=== PATIENT | female | born 1990 | race Caucasian/White ===

== ENCOUNTER 2016-02-24 19:57 | Emergency (ER) | payer OTHER ==
[2016-02-24 20:42] VITALS: BP 133/77
[2016-02-24] MEDS ORDERED: Metoclopramide IV* 5 MG/ML 2 ML VIAL IV SLOW PU ONE (20:59)
[2016-02-24] MEDS ORDERED: Ketorolac INJ* 30 MG/ML 1 ML VIAL IV PUSH ONE (21:00)
[2016-02-24] MEDS ORDERED: NS 0.9% 1000 ML* 1,000 ML IV ONE (21:04)
--- NOTE | 2016-02-24 21:05 | UC ---
Headache HPI - HPI Summary HPI Summary: PATIENT HAS HAD A MIGRAINE FOR OVER 24 HOURS, THINKS SHE HAS HAD AN INCRESE INRATE OF MIGRAINES SINCE STARTING HER NEW CONTROL PILL. N/V, DIZZYNESS, PAIN OVER THE RIGHT EYE, PHOTOPHOBIA. - History Of Current Complaint Chief Complaint: UCHeadache Stated Complaint: HEADACHE,NAUSEA Time Seen by Provider: 02/24/16 20:47 Hx Obtained From: Patient Hx Last Menstrual Period: 02/23/16 ?: No Onset/Duration: Sudden Onset, Lasting Days Onset Of Symptoms: Gradual Initially Headache Was: Moderate Currently Pain Is: Moderate Timing: Constant Character: Dull, Migraine Location of Headache: Frontal Aggravating Factor: Exertion, Position Change, Bright Lights Allevating Factors: Nothing Associated Signs And Symptoms: Positive: Dizziness, Nausea, Vomiting - Risk Factors SAH Risk Factors: Negative Meningitis Risk Factors: Negative SDH Risk Factors: Negative Temporal Arteritis Risk Factors: Negative - Allergies/Home Medications Allergies/Adverse Reactions: Allergies Allergy/AdvReac Type Severity Reaction Status Date / Time Amoxicillin Allergy Unknown Verified 02/24/16 20:36 Reaction Details Penicillins Allergy Unknown Verified 02/24/16 20:36 Reaction Details Home Medications: Home Medications Drospirenone-Ethinyl Estradiol [Beyaz 3-0.02-0.451 mg] 1 tab PO 1900 02/24/16 [ History Confirmed 02/24/16] Ibuprofen [Advil Migraine] 200 mg PO Q12HR PRN 02/24/16 [History Confirmed 02/23] SUMAtriptan TAB* [Imitrex TAB*] 50 mg PO SEE INSTRUCTIONS PRN 02/24/16 [History Confirmed 02/24/16] PMH/Surg Hx/FS Hx/Imm Hx Previously Healthy: Yes Endocrine History Of: Denies: Diabetes Cardiovascular History Of: Denies: Cardiac Disorders, Hypertension Respiratory History Of: Denies: Asthma - Surgical History Surgical History: None - Family History Known Family History: Positive: Other - several members with migraines - Social History Alcohol Use: Rare Substance Use Type: None Smoking Status (MU): Never Smoked Tobacco Type: Cigarettes Amount Used/How Often: social - Immunization History Most Recent Influenza Vaccination: Not the 2016/2016 Season Review of Systems Constitutional: Negative Skin: Negative Eyes: Photophobia ENT: Negative Respiratory: Negative Cardiovascular: Negative Gastrointestinal: Vomiting Genitourinary: Negative Motor: Negative Neurovascular: Negative Musculoskeletal: Negative Neurological: Headache Psychological: Negative All Other Systems Reviewed And Are Negative: Yes Physical Exam Triage Information Reviewed: Yes Appearance: Well-Nourished, Ill-Appearing, Pain Distress Vital Signs: Initial Vital Signs Temp 98.1 F 02/24/16 20:29 Pulse 94 02/24/16 20:29 Resp 16 02/24/16 20:29 BP 133/77 02/24/16 20:29 Pulse Ox 99 02/24/16 20:29 Vital Signs Reviewed: Yes Eye Exam: Normal Eyes: Positive: Conjunctiva Clear ENT Exam: Normal ENT: Positive: Normal ENT inspection, Pharynx normal, TMs normal Dental Exam: Normal Neck exam: Normal Neck: Positive: Supple, Nontender, No Lymphadenopathy Respiratory Exam: Normal Respiratory: Positive: Chest non-tender, Lungs clear, Normal breath sounds Cardiovascular Exam: Normal Cardiovascular: Positive: RRR, No Murmur, Pulses Normal Abdominal Exam: Normal Abdomen Description: Positive: Nontender, No Organomegaly, Soft Bowel Sounds: Positive: Present Musculoskeletal Exam: Normal Musculoskeletal: Positive: Strength Intact, ROM Intact, No Edema Neurological Exam: Normal Neurological: Positive: Alert, Muscle Tone Normal Psychological Exam: Normal Psychological: Positive: Normal Response To Family, Age Appropriate Behavior Skin Exam: Normal Headache Course/Dx - Course Course Of Treatment: hx obtained, exam performed, meds reviewed, iv fluids, reglan and toradol given for headache, benadryl given for flushing reaction to reglan, patient responding well to medications, headache is going away. 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 - Differential Dx/Diagnosis Differential Diagnosis/HQI/PQRI: Subdural Hematoma, Migraine, Sinus Headache, Temporal Arteritis, Tension Headache Provider Diagnoses: migraine. nausea Discharge - Discharge Plan Condition: Stable Disposition: HOME Patient Education Materials: Migraine Headache (ED) Referrals: Ellyn Royal MD [Primary Care Provider] - Additional Instructions: you were treated for migraine headaches today with Normal saline, Reglan and toradol as well as benadryl. I recommend follow up with your medical provider to re evaluate your choice of control.
[2016-02-24] MEDS ORDERED: diPHENhydraMINE IV* 50 MG/ML 1 ml VIAL (BENADRYL) ONE (21:27)
[2016-02-24] MEDS ORDERED: diPHENhydraMINE IV* 50 MG/ML 1 ml VIAL (BENADRYL) IV ONE (21:27)
== END 2016-02-24 22:08 | disposition home or self-care (01) ==
LOC: UCCORT 19:57
DX: G43.909 Migraine, unspecified, not intractable, without status migrainosus (principal); Z72.0 Tobacco use; Z88.1 Allergy status to other antibiotic agents
CPT/HCPCS: 96361; 96374; 96375; 99211; G0463; J1200; J1885; J2765

== ENCOUNTER 2016-03-07 16:28 | Emergency (ER) | payer OTHER ==
[2016-03-07 16:40] VITALS: BP 94/74
--- NOTE | 2016-03-07 16:59 | UC ---
Hand/Wrist HPI - HPI Summary HPI Summary: RIGHT HAND / WRIST PAIN S/P FALL ON ICE ABOUT ONE HR AGO INJURY TO RIGHT WRIST AND RIGHT HAND + TINGLING OF THE RIGHT HAND , DIFFICULTY MOVING THE RIGHT HAND - History Of Current Complaint Chief Complaint: UCUpperExtremity Stated Complaint: RIGHT WRIST,HIP INJURY/FALL Time Seen by Provider: 03/07/16 16:32 Hx Obtained From: Patient Hx Last Menstrual Period: 02/23/16 Onset/Duration: Sudden Onset, Lasting Hours - 1, Still Present Severity Initially: Moderate Severity Currently: Moderate Character Of Pain: Aching Aggravating Factor(s): Movement, Lifting, Flexion, Extension, Internal/External Rotation Alleviating: Nothing Associated Signs And Symptoms: Positive: Weakness, Numbness/Tingling. Negative : Swelling, Redness, Bruising, Fever - Allergies/Home Medications Allergies/Adverse Reactions: Allergies Allergy/AdvReac Type Severity Reaction Status Date / Time Amoxicillin Allergy Unknown Verified 03/07/16 16:33 Reaction Details Penicillins Allergy Unknown Verified 03/07/16 16:33 Reaction Details Home Medications: Home Medications Norgestimate-Eth Estradiol(NF) [Ortho Tri-Cyclen (NF)] 1 tab PO DAILY 03/07/16 [ History Confirmed 03/07/16] PMH/Surg Hx/FS Hx/Imm Hx Previously Healthy: Yes Endocrine History Of: Denies: Diabetes Cardiovascular History Of: Denies: Cardiac Disorders, Hypertension Respiratory History Of: Denies: Asthma - Surgical History Surgical History: None - Family History Known Family History: Positive: Other - several members with migraines - Social History Alcohol Use: Rare Substance Use Type: None Smoking Status (MU): Never Smoked Tobacco Type: Cigarettes Amount Used/How Often: social - Immunization History Most Recent Influenza Vaccination: Not the Season Review of Systems Constitutional: Negative Skin: Negative Eyes: Negative ENT: Negative Respiratory: Negative Cardiovascular: Negative Musculoskeletal: Other: - RIGHT HAND PAIN All Other Systems Reviewed And Are Negative: Yes Physical Exam Triage Information Reviewed: Yes Appearance: Well-Appearing, No Pain Distress, Well-Nourished Vital Signs: Initial Vital Signs Temp 99.8 F 03/07/16 16:35 Pulse 66 03/07/16 16:35 Resp 16 03/07/16 16:35 BP 94/74 03/07/16 16:35 Pulse Ox 100 03/07/16 16:35 Vital Signs Reviewed: Yes Eye Exam: Normal Eyes: Positive: Conjunctiva Clear ENT: Positive: Normal ENT inspection, Hearing grossly normal, Pharynx normal Neck exam: Normal Neck: Positive: Supple Respiratory: Positive: Chest non-tender, Lungs clear, Normal breath sounds Cardiovascular: Positive: RRR, No Murmur, Pulses Normal Musculoskeletal: Positive: Other: - RIGHT WIRST: NO SWELLING , NO ECCHYMOSIS, + MINIMAL ABRASION , GOOD ROM ON FLEXION AND EXTENSION RIGHT HAND : NO SWELLING, NO ECCHYMOSIS , + TENDERNESS ON4TH AND 5TH METACARPAL BONE. LIMITED ROM ON FLEXION AND EXTENSION Hand/Wrist Course/Dx - Differential Dx/Diagnosis Provider Diagnoses: CONTUSION RIGHT HAND. CONTUSION RIGHT WRIST Discharge - Discharge Plan Condition: Stable Disposition: HOME Patient Education Materials: Contusion in Adults (ED) Referrals: Ellyn Royal MD [Primary Care Provider] - 5 Days Additional Instructions: REST, ICE , IBUPROFEN
--- NOTE | 2016-03-07 17:04 | RAD ---
INDICATION: Right hand injury COMPARISON: None TECHNIQUE: AP, lateral, and oblique views were obtained. FINDINGS: There is a nondisplaced transverse fractures of the base of the fifth metacarpal. This may extend intra-articularly. There are no other fractures. The joint spaces are otherwise preserved. IMPRESSION: NONDISPLACED TRANSVERSE FRACTURE BASE OF FIFTH METACARPAL
== END 2016-03-07 17:26 | disposition home or self-care (01) ==
LOC: UCCORT 16:28
DX: S62.346A Nondisplaced fracture of base of fifth metacarpal bone, right hand, initial encounter for closed fracture (principal); Z88.0 Allergy status to penicillin; Z88.1 Allergy status to other antibiotic agents; W00.0XXA Fall on same level due to ice and snow, initial encounter; Y92.9 Unspecified place or not applicable
CPT/HCPCS: 99212; G0463

== ENCOUNTER 2016-10-12 13:01 | Emergency (ER) | payer OTHER ==
[2016-10-12] MEDS ORDERED: SUMAtriptan TAB* 50 MG PO ONE (13:57)
[2016-10-12] MEDS ORDERED: Ketorolac INJ* 30 MG/ML 1 ML VIAL IM ONE (13:57)
[2016-10-12] MEDS ORDERED: Ondansetron ODT TAB* 4 MG PO ONE (13:57)
[2016-10-12] MEDS ORDERED: SUMAtriptan SQ* 6 MG/0.5 ML VIAL SUBCUT ONE (14:02)
--- NOTE | 2016-10-12 14:10 | UC ---
Headache HPI - HPI Summary HPI Summary: This is a 26 yo female with a h/o migraine HAs who presents with complaints of a severe GUILLORY. Her pain is frontal. She is light sensitive and was vomiting this am. She took Excedrin this am without improvement. The quality of her GUILLORY is similar to her prior migraines. She has been seen by neurology but resistant to starting a daily prophylactic medication. She has a GUILLORY several times monthly. Denies weakness, numbness, tingling. - History Of Current Complaint Chief Complaint: UCHeadache Stated Complaint: MIGRAINE/NAUSEA Hx Last Menstrual Period: present - ending - Allergies/Home Medications Allergies/Adverse Reactions: Allergies Allergy/AdvReac Type Severity Reaction Status Date / Time Amoxicillin Allergy Unknown Verified 10/12/16 13:18 Reaction Details Penicillins Allergy Unknown Verified 10/12/16 13:18 Reaction Details Home Medications: Home Medications Igrsito-Mqcoinhaumjhk-Yubocrgy [Excedrin Migraine 250-250-65 mg] 1 tab PO [History] PMH/Surg Hx/FS Hx/Imm Hx Previously Healthy: No - migraines - Surgical History Surgical History: None - Family History Known Family History: Positive: Other - several members with migraines - Social History Alcohol Use: Rare Substance Use Type: None Smoking Status (MU): Never Smoked Tobacco Type: Cigarettes Amount Used/How Often: social - Immunization History Most Recent Influenza Vaccination: Not the 2015/2016 Season Review of Systems Constitutional: Negative Skin: Negative Eyes: Negative ENT: Negative Respiratory: Negative Cardiovascular: Negative Gastrointestinal: Negative Genitourinary: Negative Motor: Negative Neurovascular: Negative Musculoskeletal: Negative Neurological: Headache Psychological: Negative All Other Systems Reviewed And Are Negative: Yes Physical Exam Triage Information Reviewed: Yes Appearance: Ill-Appearing Vital Signs: Initial Vital Signs Temp 98.4 F 10/12/16 13:11 Pulse 53 10/12/16 13:11 Resp 20 10/12/16 13:11 BP 101/68 10/12/16 13:11 Pulse Ox 100 10/12/16 13:11 Vital Signs Reviewed: Yes Eye Exam: Normal ENT Exam: Normal Neck: Positive: Supple, Nontender, No Lymphadenopathy Respiratory: Positive: Lungs clear, Normal breath sounds. Negative: Crackles, Rhonchi, Wheezing Cardiovascular: Positive: RRR, No Murmur Abdomen Description: Positive: Nontender Neurological: Positive: Alert, Muscle Tone Normal Re-Evaluation - Re-Evaluation First Eval Re-Evaluation Time: 14:45 Change: Improved Comment: GUILLORY resolved after receiving SQ imitrex, po zofran and IM toradol Headache Course/Dx - Course Course Of Treatment: This is a 26 yo female who presented with c/o severe GUILLORY similar to her prior migraines. She was treated with imitrex, zofran and toradol with excellent effect - Differential Dx/Diagnosis Differential Diagnosis/HQI/PQRI: Migraine, Sinus Headache, Tension Headache Provider Diagnoses: 1. Acute migraine - she received instructions to discuss prophylactic medications with her PCP due to the frequency of her headaches Discharge - Discharge Plan Condition: Stable Disposition: HOME Prescriptions: Ondansetron ODT TAB* [Zofran 4 MG Odt TAB*] 4 mg PO Q4H PRN #30 tab.odt PRN Reason: Nausea Patient Education Materials: Migraine Headache (ED) Referrals: Ellyn Royal MD [Primary Care Provider] - Additional Instructions: Activity: As tolerated Instructions: 1. Please follow up with Dr Royal about your HAs to discuss subcutaneous imitrex and prophylactic medications
[2016-10-12 14:45] VITALS: BP 105/67
== END 2016-10-12 15:03 | disposition home or self-care (01) ==
LOC: UCCORT 13:01
DX: G43.909 Migraine, unspecified, not intractable, without status migrainosus (principal); Z88.0 Allergy status to penicillin
CPT/HCPCS: 96372; 99212; A9270-GY; G0463; J1885; J3030

== ENCOUNTER 2016-11-06 20:20 | Emergency (ER) | payer OTHER | END 2016-11-06 20:26 | disposition left against medical advice (07) | LOC: UCCORT 20:20 | DX: R51 Headache (principal); Z53.21 Procedure and treatment not carried out due to patient leaving prior to being seen by health care provider ==